=== PATIENT | male | born 1985 | race Two or more races ===

== ENCOUNTER 2018-01-01 19:46 | Emergency (ER) | payer SELFPAY ==
[~2018-01-01] VITALS: Ht 162.6 cm; Wt 74.9 kg
[~2018-01-01 19:46] MED LIST: NAPROSYN500 MG PO; PERCOCET 5/31 TABLET PO; THIAMINE HCL100 MG PO; ULTRAM50 MG PO; VALIUM5 MG PO; ZOFRAN ODT4 MG PO
[2018-01-01 21:01] LABS: HEMATOCRIT 44.3 % (38.0-50.0); HEMOGLOBIN 15.2 G/DL (12.5-16.6); MCH 29.6 PG (29.0-34.0); MCHC 34.3 G/DL (30.0-36.0); MCV 86.4 FL (86-99); PLATELET COUNT 233 K/uL (156-360); RBC DIS.WIDTH-CV 12.8 % (11.8-14.6); RBC DIS.WIDTH-SD 40.3 % (39-53); RED BLOOD COUNT 5.13 M/uL (4.00-5.50); WHITE BLOOD COUNT 3.5 K/uL (4.1-10.2)
[2018-01-01 21:02] LABS: ALBUMIN 4.2 g/dL (3.2-4.8); CHLORIDE 107 mEq/L (99-109); POTASSIUM 4.2 mEq/L (3.7-5.4); SODIUM 140 mEq/L (136-147)
[2018-01-01 21:04] LABS: GLUCOSE 104 mg/dL (70-99); TOTAL PROTEIN 7.2 g/dL (6.4-8.3)
[2018-01-01 21:06] LABS: TOTAL BILIRUBIN 0.3 mg/dL (0.0-1.0)
[2018-01-01 21:08] LABS: ALKALINE PHOSPHATASE 68 IU/L (3-129); CREATININE 1.1 mg/dL (0.6-1.3); GFR ESTIMATE (CALCULATED) > 59 mL/min/ (58.99-99999)
[2018-01-01 21:09] LABS: UREA NITROGEN (BUN) 12 mg/dL (9-23)
[2018-01-01 21:10] LABS: AST (GOT) 22 IU/L (2-34)
[2018-01-01 21:11] LABS: ALT (GPT) 27 IU/L (3-49); LIPASE 28 U/L (1.0-51.0)
[2018-01-01] MEDS ORDERED: ZOFRAN4 MG PO (23:20)
[2018-01-01] MEDS ORDERED: ZANTAC150 MG PO (23:20)
[2018-01-01 23:31] VITALS: BP 113/69
== END 2018-01-01 23:40 | disposition home or self-care (01) ==
LOC: EME 19:46
PROVIDERS: Physician Assistant
DX: R10.13 Epigastric pain (principal)
CPT/HCPCS: 71046; 74176; 80053; 83690; 85027; 99281; 99284